=== PATIENT | male | born 1955 | race Two or more races ===

== ENCOUNTER 2016-04-28 16:28 | Emergency (ER) | payer OTHER ==
[~2016-04-28] VITALS: Ht 167.6 cm; Wt 64.4 kg
[2016-04-28] MEDS ORDERED: ONDANSETRON HCL/PF 4 MG/2 ML VIAL ONE (16:57)
[2016-04-28] MEDS ORDERED: IV NS 0.9% 1,000 ML BAG IV ONE (17:00)
[2016-04-28] MEDS ORDERED: ONDANSETRON HCL/PF 4 MG/2 ML VIAL IVP ONE (17:00)
[2016-04-28] MEDS ORDERED: IV NS 0.9% 1,000 ML ONE (17:06)
[2016-04-28 17:10] LABS: BASOPHILS # (AUTO) 0.1 /CMM (0.0-0.2); BASOPHILS % (AUTO) 0.8 % (0.0-2.0); DIFF TOTAL % 100 %; EOSINOPHILS # (AUTO) 0.1 /CMM (0.0-0.7); EOSINOPHILS % (AUTO) 1.7 % (0.0-6.0); HEMATOCRIT 41 % (39-51); HEMOGLOBIN 13.6 g/dL (13.5-17.5); LYMPHOCYTES # (AUTO) 2.8 /CMM (0.8-4.8); LYMPHOCYTES % (AUTO) 35.6 % (20.0-44.0); MEAN CORPUSCULAR HEMOGLOBIN 32 PG (26.0-33.0); MEAN CORPUSCULAR HGB CONC 33 g/dl (31.0-36.0); MEAN CORPUSCULAR VOLUME 95 fL (80-96); MONOCYTES # (AUTO) 0.7 /CMM (0.1-1.30); MONOCYTES % (AUTO) 9.4 % (2.0-12.0); NEUTROPHILS # (AUTO) 4.1 /CMM (1.8-8.9); NEUTROPHILS % (AUTO) 52.5 % (43.0-81.0); PLATELET COUNT (AUTO) 264 /CMM (150-450); WHITE BLOOD COUNT (AUTO) 7.8 K/uL (4.3-11.0)
[2016-04-28 17:19] LABS: CREATININE 1.1 mg/dL (0.6-1.3); POTASSIUM 3.7 mmol/L (3.5-5.1)
[2016-04-28 17:25] LABS: ALBUMIN 4.1 g/dL (3.4-5.0); BILIRUBIN,DIRECT 0.1 mg/dL (0.0-0.2); BILIRUBIN,TOTAL 0.3 mg/dL (0.2-1.0); INDIRECT BILIRUBIN 0.2 mg/dL (0.0-1.1); TOTAL PROTEIN, SERUM 7.2 g/dL (6.4-8.2)
[2016-04-28 17:30] LABS: CALCIUM, SERUM 8.3 mg/dL (8.5-10.1)
[2016-04-28] MEDS ORDERED: METOCLOPRAMIDE HCL 10 MG/2 ML VIAL ONE (17:45)
[2016-04-28] MEDS ORDERED: IV NS 0.9% 500 ML BAG IV ONE (18:00)
[2016-04-28] MEDS ORDERED: IV NS 0.9% 500 ML IV ONE (18:00)
[2016-04-28] MEDS ORDERED: METOCLOPRAMIDE HCL 10 MG/2 ML VIAL IV ONE (18:00)
[2016-04-28] MEDS ORDERED: LABETALOL HCL IV 100MG VIAL IV ONE (18:30)
[2016-04-28] MEDS ORDERED: LABETALOL HCL IV 100MG VIAL ONE (18:31)
[2016-04-28 20:02] VITALS: BP 184/117
== END 2016-04-28 20:03 | disposition left against medical advice (07) ==
LOC: ER 16:31
DX: R55 Syncope and collapse (principal); I10 Essential (primary) hypertension
CPT/HCPCS: 36415; 80048; 80076; 83690; 85025; 87040 ×2; 93005; 96361; 96374; 96375; 99285; A4606; J2405 ×2; J2765 ×2; J3490 ×2; J7030 ×2; J7040 ×2; Z7610